=== PATIENT | male | born 2000 | race Caucasian/White ===

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

== ENCOUNTER 2022-07-01 21:50 | Emergency (ER) | payer OTHER ==
[2022-07-01] MEDS ORDERED: LIDOCAINE PATCH REMOVAL MC SCH (22:00)
[2022-07-01 22:28] VITALS: BP 133/85; PULSE 90; RESP 20; TEMP 98.8; BMI 37.2
[2022-07-01] MEDS ORDERED: KETOROLAC TROMETHAMINE 30 MG/1 ML VIAL IM ONE (23:20)
[2022-07-01] MEDS ORDERED: LIDOCAINE 5% TOPICAL PATCH TP ONE (23:20)
[2022-07-01] MEDS ORDERED: LIDOCAINE 5% TOPICAL PATCH ONE (23:23)
[2022-07-01] MEDS ORDERED: KETOROLAC TROMETHAMINE 30 MG/1 ML VIAL ONE (23:24)
== END 2022-07-02 00:35 | disposition home or self-care (01) ==
LOC: JERFT 21:50 → JER 21:50
PROC: 3E0233Z Introduction of Anti-inflammatory into Muscle, Percutaneous Approach (ICD-10-PCS; principal; 2022-07-01)
DX: M54.50 Low back pain, unspecified (principal)
CPT/HCPCS: 99284-25

== ENCOUNTER 2022-07-16 22:27 | Emergency (ER) | payer OTHER ==
[2022-07-16 22:44] VITALS: BP 145/89; PULSE 100; RESP 20; TEMP 98.2; BMI 37.2
== END 2022-07-16 23:22 | disposition home or self-care (01) ==
LOC: JERFT 22:27
DX: B35.4 Tinea corporis (principal)
CPT/HCPCS: 99282-25